=== PATIENT | female | born 1950 | race Caucasian/White ===

== ENCOUNTER 2018-06-04 05:59 | Inpatient (IN) | payer MEDICARE, BC ==
[2018-05-24 09:15] LABS: ABSOLUTE BASOPHILS 0.1 thou/uL (0.0-0.2); ABSOLUTE EOSINOPHILS 0.5 thou/uL (0.0-0.7); ABSOLUTE LYMPHOCYTES 1.7 thou/uL (0.8-5.3); ABSOLUTE MONOCYTES 0.4 thou/uL (0.0-1.2); ABSOLUTE NEUTROPHILS 3.4 thou/uL (1.6-8.1); BASOPHILS 1.1 %; EOSINOPHILS 7.6 %; HEMATOCRIT 37.2 % (37.0-47.0); HEMOGLOBIN 12.5 gm/dL (12.0-15.0); LYMPHOCYTES 27.8 %; MCH 31.9 pg (26.0-34.0); MCHC 33.5 g/dL (28.0-37.0); MCV 95.3 fL (80.0-100.0); MONOCYTES 6.7 %; MPV 8.2 fl. (7.2-11.1); NUCLEATED RBCS 0 /100WBC; PLATELET COUNT* 238 thou/uL (150-400); POLYS 56.8 %; RDW-CV 12.1 % (10.5-14.5)
[2018-05-24 09:30] LABS: APTT 21.8 Seconds (25.0-31.3); INR 0.9; PROTIME 9.7 Seconds (9.20-11.50)
[2018-05-24 09:51] LABS: ALBUMIN 3.6 g/dL (3.4-5.0); CALCIUM 9.6 mg/dL (8.5-10.1); CREATININE 1.1 mg/dL (0.6-1.3); POTASSIUM 3.9 mmol/L (3.5-5.1); TOTAL BILIRUBIN 0.4 mg/dL (<0.1-1.0)
[2018-05-24 10:19] LABS: ESR (SEDRATE) 62 mm/hr (0-30)
--- NOTE | 2018-05-24 16:46 | EKG ---
[place] [address] ELECTROCARDIOGRAM REPORT Name: DIANELYS LEIVA Room: PRE IN [facility]#: [id number] Admission: Attend Phys: Martha Hathaway Discharge: Date of : 46 Report #: [id number] THIS REPORT FOR: //name// [facility] Test Date: 2018-05-24 Test Time: 09:26:38 Pat Name: DIANELYS LEIVA Department: Room: Gender: F [employer]: : [id number] Requested By: Santos Ervin Order Number: [id number] Reading MD: Amandeep Ramos Measurements Intervals [place] Rate: 63 P: 78 KS: 161 QRS: 32 QRSD: 93 T: 61 QT: 396 QTc: 406 Interpretive Statements Sinus rhythm Abnormal R-wave progression, early transition No previous ECG available for comparison Electronically Signed On 05-24-2018 16:46:38 CDT by Amandeep Ramos [email or web address] <ELECTRONICALLY SIGNED> By: Amandeep Ramos MD, [facility] 05/24/18 1646 0926 0926 Amandeep Ramos MD, FACC /EPI
[2018-05-24 23:07] LABS: GLYCOHEMOGLOBIN (HGB A1C) 5.2 % (4.8-5.6)
[~2018-06-04] VITALS: Ht 162.6 cm; Wt 70.3 kg
[~2018-06-04 05:59] MED LIST: ALEVE220 MG PO; ALIGN4 MG PO; ASPIR 8181 MG PO; BENTYL 10 MG CA10 M1 PO; CALCIUM 500 +1 EAC5 PO; CELEXA10 MG PO; DILTIAZEM 24HR180 M3 PO; FISH OIL 1,001000 M2 PO; GLUCOSAMINE-CH1 EA45 PO; ONE DAILY WOME1 EAC3 PO; SIMVASTATIN40 MG PO; TOPROL XL25 MG PO
[2018-06-04 06:45] VITALS: BP 128/71
[2018-06-04 11:50] VITALS: BP 110/55
[2018-06-04 20:30] VITALS: BP 113/55
[2018-06-05] VITALS: BP 118/60
[2018-06-05 04:00] VITALS: BP 114/59
[2018-06-05 08:30] VITALS: BP 121/64
[2018-06-05] MEDS ORDERED: ELIQUIS2.5 MG PO (09:56)
[2018-06-05 10:10] VITALS: BP 121/64
[2018-06-05] MEDS ORDERED: OXYCODONE HCL 55 MG PO (10:16)
[2018-06-05 11:24] VITALS: BP 121/64
[2018-06-05] MEDS ORDERED: AMBIEN 5 MG TABL5 M1 PO (12:40)
--- NOTE | 2018-06-12 13:12 | OP ---
[address] [address] OPERATIVE REPORT Name: DIANELYS LEIVA Room: [address]#: [id number] Admission: 06/04/18 Attend Phys: Martha Hathaway Discharge: 06/05/18 Date of : 46 Report #: [id number] THIS REPORT FOR: //name// CC: Bradly Ventura DICTATED BY: Arpit Lim DO DATE OF SERVICE: 06/04/2018 PREOPERATIVE DIAGNOSIS: Left shoulder advanced degenerative joint disease. POSTOPERATIVE DIAGNOSIS: Left shoulder advanced degenerative joint disease. PROCEDURE: Left anatomic total shoulder arthroplasty utilizing Biomet comprehensive total shoulder arthroplasty system with the following components: 1. 10 mm mini humeral stem. 2. Small 4 mm ArCom glenoid base cemented. 3. 42 mm cobalt chromium modular humeral head with variable offset. 4. Standard taper adapter. 5. Porous titanium glenoid post. SURGEON: Santos Ervin DO ASSISTANTS: Arpit Lim DO and Henry Canales DO ANESTHESIA: General. ESTIMATED BLOOD LOSS: 175 mL. ANTIBIOTICS: 2 grams Ancef IV preoperatively. SPECIMENS: None. DRAINS: None. COMPLICATIONS: None. DISPOSITION: Stable to PACU and will be admitted to the hospital for standard postoperative care. INDICATIONS FOR PROCEDURE: The patient is a pleasant 68-year-old female who was seen in Orthopedic Clinic multiple times with complaints of chronic left shoulder pain. On radiographs, she had advanced degenerative joint disease of her left shoulder consisting of primary osteoarthritic changes. No high riding [facility] [address] [place] [address] OPERATIVE REPORT Name: RASHIDABLAIRDIANELYS Timbo Room: [address] IN [facility].#: [id number] Admission: 06/04/18 Attend Phys: Martha Hathaway Discharge: 06/05/18 Date of : 46 Report #: [id number] humeral head, seemed to have intact rotator cuff on exam. Also, had evidence of intact rotator cuff with well-seated and non-high riding humeral head on radiographs. Recommendation was made for left anatomic total shoulder arthroplasty versus possible reverse total shoulder arthroplasty. Risks, benefits, complications, indications and alternative treatments were discussed and the patient wished to proceed with surgery today. DESCRIPTION OF PROCEDURE: The patient was seen in preoperative holding area. Correct operative site, left shoulder was initialed. The patient was taken back to operating suite, placed in supine position on the [employer] operating table, given benefit of general anesthetic. Then, was placed in a roughly 30-degree head elevated position in a modified beach chair position. Head and all bony prominences were well padded in normal fashion. Left shoulder was then prepped and draped in typical fashion. Surgery began with a timeout, identifying correct patient, correct procedure, correct operative site, preoperative antibiotics and current performing surgeon. Next, a standard deltopectoral skin incision and approach were made to the anterior aspect of the left shoulder. Skin was incised, starting just lateral to the coracoid process extending roughly 8-10 cm in length. Sharp dissection was taken down to the deltopectoral fascia. Utilizing tissue dissector scissors, the deltopectoral interval and cephalic vein were identified. Blunt dissection was utilized to develop the deltopectoral interval and take lateral cephalic vein laterally. Subdeltoid bursa and adhesions were freed, utilizing blunt dissection, utilizing finger. Next, clavipectoral fascia was incised just lateral to the conjoined tendon in normal fashion. Next, bicipital groove was palpable and biceps tendon was dissected out just on the lateral aspect of the biceps tendon and we incised proximally up to the rotator interval to the glenoid. Next, we performed a subscapularis tenotomy just medial to its insertion on the lesser tuberosity. We left a small cuff of tendinous tissue on the lesser tuberosity for later repair. Capsule, middle glenohumeral ligament and subscapularis were then peeled off the inferior humeral neck while externally rotating the arm in the normal fashion. Inferior humeral head osteophytes and anterior, posterior humeral head osteophytes were removed at this time. Next, a humeral canal was entered utilizing the canal finder, followed by sequential reaming up to the above-mentioned size, followed by sequential broaching up to the above-mentioned size. A final humeral stem was then impacted into place in the normal fashion, roughly in 20-25 degrees of retroversion, of course after making our anatomic humeral neck cut utilizing the intramedullary cutting guide. Our cut was made just medial to the insertion of the supraspinatus, infraspinatus rotator cuff tendons which seemed very well intact with no significant tears noted. Plan thus far moving forward was for an anatomic total shoulder. After the final humeral stem was impacted into place, we then turned our attention to the glenoid preparation. Appropriate retractors were placed both posteriorly and anteriorly. Labrum was excised utilizing electrocautery. Small inferior capsular release was performed staying on [address] [address] OPERATIVE REPORT Name: DIANELYS LEIVA Room: [address] IN [facility]#: [id number] Admission: 06/04/18 Attend Phys: Martha Hathaway Discharge: 06/05/18 Date of : 46 Report #: [id number] on the inferior aspect of the glenoid down to the scapular neck region. We were able to well define all the borders of the glenoid at this time. Utilizing the targeting guide, we placed our center pin roughly in the center of the glenoid, maybe just slightly inferior to center of the glenoid. Next, we reamed in the normal fashion and then reamed for our center post of our glenoid polyethylene. After adequate reaming and central peg reaming for a glenoid component, cement was mixed on the back table in the normal fashion and we drilled our 3 peripheral peg holes utilizing the provided guide. Our final polyethylene glenoid component was cemented into place. It was impacted utilizing a small mallet and it was held into place until the cement had hardened and had great fit around the perimeter of the glenoid and was down flushed on the glenoid bone. Next, we trialled a humeral head in the appropriate offset position. Had great range of motion and overall acceptable stability of our total shoulder implants. Therefore, we impacted our final humeral head in the appropriate amount of offset that it gave great coverage over our proximal humerus. Total shoulder was reduced for the final time. Again, it was taken through range of motion and had great range of motion with forward flexion, internal rotation and abduction. Next, our subscapularis was repaired to the remaining small portion of tendinous cuff that was left on the lesser tuberosity. We repaired this utilizing #2 FiberWire in a [id number] fashion. Multiple sutures were applied. We had a great repair. We even performed etkcro-hy-coqmo sutures reapproximating our rotator interval. Again, shoulder was then taken through range of motion, had great stability even with external rotation and all planes of motion with no feelings of dislocation or subluxation at this point. Rotator interval was loosely reapproximated with a #1 Vicryl suture in a simple running fashion. Subcutaneous tissues were closed with 2-0 Monocryl suture in a simple interrupted inverted fashion. Running 3-0 barbed Stratafix suture was used for subcuticular layer followed by Dermabond on the skin glue and a Mepilex over the wound. The patient was placed in a slingshot shoulder immobilizer, weaned from general anesthetic, transferred in stable condition to PACU. All sponge and needle counts were correct x 2. She will be nonweightbearing to her left upper extremity and we will limit her external rotation to no more than neutral to protect her subscapularis repair. Follow up in Orthopedic Clinic in 2 weeks. <ELECTRONICALLY SIGNED> By: Stanislav Velasquez DO 06/12/18 1312 [id number] Ervin DO /conrad
== END 2018-06-05 13:08 | disposition home or self-care (01) | DRG 483 ==
LOC: M.ORTHSURG 05:59 → M.TBA 05:59 → M.PRE 08:33 → M.ORTHSURG 10:34 → M.PRE 10:53 → M.ORTHSURG 06-05 13:08
PROVIDERS: Orthopaedic Surgery; ADMIT Internal Medicine
PROC: 0RRK0JZ Replacement of Left Shoulder Joint with Synthetic Substitute, Open Approach (ICD-10-PCS; principal; 2018-06-04)
DX: M19.012 Primary osteoarthritis, left shoulder (principal); I10 Essential (primary) hypertension; K58.9 Irritable bowel syndrome, unspecified; E78.5 Hyperlipidemia, unspecified; Z96.611 Presence of right artificial shoulder joint; Z98.42 Cataract extraction status, left eye; Z98.41 Cataract extraction status, right eye; Z88.1 Allergy status to other antibiotic agents; Z88.2 Allergy status to sulfonamides; Z88.8 Allergy status to other drugs, medicaments and biological substances; Z91.018 Allergy to other foods; Z91.012 Allergy to eggs